=== PATIENT | female | born 1985 | race Two or more races ===

== ENCOUNTER 2024-12-02 11:03 | Emergency (ER) | payer MEDICAID ==
[~2024-12-02] VITALS: Ht 162.6 cm; Wt 88.8 kg
[2024-12-02] MEDS ORDERED: HYDR-3972 PO (12:21)
[2024-12-02 12:26] VITALS: BP 138/80; PULSE 92; RESP 18; TEMP 98.8; O2SAT 96
[2024-12-02] MEDS: oxyCODONE IR 5mg (immed. release) tablet PO ONE (12:30)
== END 2024-12-02 12:32 | disposition home or self-care (01) ==
LOC: ER 11:04
DX: K04.7 Periapical abscess without sinus (principal); K02.9 Dental caries, unspecified
CPT/HCPCS: 99283